=== PATIENT | male | born 1965 | race Caucasian/White ===

== ENCOUNTER 2022-05-24 06:19 | Day surgery (SDC) | payer BC, SELFPAY ==
[2022-05-24] VITALS (23 sets, daily range): BP systolic 107–139; BP diastolic 66–116; PULSE 74–94; RESP 16–18; TEMP 36.2–37.1; O2SAT 87–97; BMI 29.6
[2022-05-24] MEDS: SODIUM CHLORIDE 0.9 % (FLUSH) 10 ML SYRINGE IVF (06:35)
[2022-05-24] MEDS: LACTATED RINGERS 1000 ML 1,000 ML 100 ML IV (06:35)
[2022-05-24] MEDS: CEFAZOLIN 2 GM INJ IVP (07:40)
[2022-05-24] MEDS: BUPIVACAINE 0.25% 30 ML INJECTION (09:38)
--- NOTE | 2022-05-24 09:55 | P.GSOP_ITS ---
Operative Note Date of procedure: 05/24/22 Pre-op diagnosis: 1. Symptomatic recurrent left inguinal hernia. Post-op diagnosis: 1. Recurrent left inguinal hernia. Type of Procedure: 1. Open left inguinal hernia repair with mesh. Procedure Description: After discussing the risks and benefits of the procedure, the patient signed informed consent.? The operative site was marked and the patient was brought to the operating room and placed on the operating table in supine position.? Care was taken to pad the patient's pressure points.?? The patient was then intubated by anesthesia.?? The operative site was then prepped and draped in the usual sterile fashion.? A time-out was then performed. Site of the incision was marked with a marking pen and local anesthetic was injected. An oblique incision was made just above and medial to inguinal ligament through a previously well-healed surgical scar. Subcutaneous tissue was dissected to external obliques but the external obliques were not clearly identified. A lot of scar tissue was present in subcutaneous fat and around the hernia sac. I then used Metzenbaum scissors to dissect around the hernia sac. The hernia sac was identified and Olivia clamps were placed on the hernia sac. The spermatic cord was then dissected off the hernia sac bluntly and with cautery. The indirect hernia sac was very thickened but no intra-abdominal structures were palpated in the hernia sac. The hernia sac was then incised with Metzenbaum scissors and examined from the inside. Dense adhesions of epiploic fat were noted at the level of the internal ring. Those adhesions were taken down with cautery. The large intestine was not visualized in the hernia sac. The hernia sac was then excised with cautery with the edges of the hernia sac were secured in place with clamps. The hernia sac was then closed by over- sewing it with 2-0 Vicryl locking suture. The hernia sac was then pushed into the preperitoneal space. The inguinal floor was scarred. Surgical field was examined for bleeding and hemostasis was achieved with cautery and Vicryl ties. A large Bard mesh plug was inserted through the internal ring and secured to the adjacent tissues with interrupted 0-0 Neurolon sutures. A large Bard mesh onlay was also used for hernia repair. The mesh onlay was sutured in place with interrupted 0-0 Neurolon sutures to the conjoint tendon medially and shelving edge laterally, pubic tubercle inferiorly. Simple interrupted sutures were placed using 0-0 Neurolon at the base of internal inguinal ring making it only large enough to fit a tip of one finger through. Spermatic cord was placed back into scrotum. [place] drain was removed. No clear external oblique layer was present to reapproximate over the mesh. Subcutaneous fat was closed over the mesh with interrupted Vicryl sutures. Additional local anesthetic was injected into the subcutaneous fat. Dermis was reapproximated with interrupted 3-0 V icryl sutures. Skin incision was closed with 4-0 Monocryl subcuticular stitch. Steri strips and sterile dressing were applied over incision. All counts were correct at the end of the case. Patient tolerated this procedure well and was transferred to PACU in stable condition. Indications: 56-year-old male was seen in clinic for evaluation of an enlarging left inguinal hernia. Patient had a left inguinal hernia repair in and shortly after his repair, he noticed a left inguinal bulge. This bulge was getting bigger and was not reducible. On clinical exam the patient had a large left inguinal hernia extending to the superior scrotum. The hernia was reducible with the patient lying down. Given patient's clinical history and his symptoms, an open left inguinal hernia repair with mesh was recommended. The procedure was discussed in detail. The risks associated with the procedure including infection, bleeding, nerve injury, hernia recurrence, and prolonged pain were all discussed with the patient, and he agreed to proceed. Findings: Large thickened indirect hernia sac. Scar tissue was present from previous repair. The hernia was repaired with mesh plug and onlay. Anesthesia: GETA Surgeon: Jeff Radford MD Estimated blood loss (mL): 10 Condition: stable Disposition: PACU
--- NOTE | 2022-05-24 10:14 | W.ANESCHARGE ---
Anesthesia Charges Start Date/Time Anesthesia Start Date: 05/24/22 Anesthesia Start Time: 07:30 Stop Date/Time Anesthesia Stop Date: 05/24/22 Anesthesia Stop Time: 10:02 Summary Emergency: No
== END 2022-05-24 11:41 | disposition home or self-care (01) ==
PROVIDERS: PCP Family Medicine; Visit Provider Surgery
PROC: (CPT 49520; principal; 2022-05-24 07:30)
DX: K40.91 Unilateral inguinal hernia, without obstruction or gangrene, recurrent (principal)
CPT/HCPCS: 49520; 00830; C1781; J0690; J1100; J1885; J2405; J2704; J3010; J3490; J7120